=== PATIENT | female | born 1975 | race Caucasian/White ===

== ENCOUNTER 2021-05-08 22:07 | Emergency (ER) | payer SELFPAY ==
[2021-05-08] MEDS ORDERED: ONDANSETRON 4 MG/2 ML (SDV) Z0FRAN ONE (22:23)
[2021-05-08] MEDS ORDERED: ONDANSETRON 4 MG/2 ML (SDV) Z0FRAN IVP ONE (22:30)
[2021-05-08] MEDS ORDERED: LACTATED RINGERS 1,000 ML IV ONE (22:45)
[2021-05-08 22:46] LABS: BASOPHILS # (AUTO) 0.1 10^3/uL (0.0-0.1); BASOPHILS % (AUTO) 0 % (0-10); EOSINOPHILS # (AUTO) 0.1 10^3/uL (0.0-0.3); EOSINOPHILS % (AUTO) 1 % (0-10); HEMATOCRIT 43 % (35-52); HEMOGLOBIN 14.3 g/dL (11.5-16.0); LYMPHOCYTES # (AUTO) 2.2 10^3/uL (1.0-4.0); LYMPHOCYTES % (AUTO) 11 % (12-44); MEAN CORPUSCULAR HEMOGLOBIN 30 pg (25-34); MEAN CORPUSCULAR HGB CONC 33 g/dL (32-36); MEAN CORPUSCULAR VOLUME 92 fL (80-99); MEAN PLATELET VOLUME 10.5 fL (9.0-12.2); MONOCYTES # (AUTO) 0.9 10^3/uL (0.0-1.0); MONOCYTES % (AUTO) 5 % (0-12); NEUTROPHILS # (AUTO) 16.2 10^3/uL (1.8-7.8); NEUTROPHILS % (AUTO) 83 % (42-75); PLATELET COUNT 474 10^3/uL (130-400); WHITE BLOOD COUNT 19.6 10^3/uL (4.3-11.0)
[2021-05-08 22:51] LABS: ALBUMIN 4.7 GM/DL (3.2-4.5); CHLORIDE 106 MMOL/L (98-107); POTASSIUM 4.1 MMOL/L (3.6-5.0); SODIUM 141 MMOL/L (135-145)
[2021-05-08 22:52] LABS: AMYLASE 65 U/L (25-125)
[2021-05-08 22:53] LABS: CALCIUM 10.1 MG/DL (8.5-10.1)
[2021-05-08 22:54] LABS: GLUCOSE 164 MG/DL (70-105)
[2021-05-08 22:55] LABS: CARBON DIOXIDE 19 MMOL/L (21-32)
[2021-05-08 22:56] LABS: BILIRUBIN,TOTAL 0.3 MG/DL (0.1-1.0)
[2021-05-08 22:57] LABS: ALKALINE PHOSPHATASE 77 U/L (40-136); CREATININE SERUM 0.97 MG/DL (0.60-1.30); GFR ESTIMATED > 60
[2021-05-08 22:58] LABS: BUN/CREATININE RATIO 13
[2021-05-08 23:00] LABS: ALANINE AMINOTRANSFERASE 15 U/L (0-55)
[2021-05-08] MEDS ORDERED: HYOSCYAMINE 0.125 MG (LEVSIN) TAB PO ONE (23:00)
[2021-05-08] MEDS ORDERED: KETOROLAC 30 MG/ML VIAL IVP ONE (23:00)
[2021-05-08 23:01] LABS: LIPASE 19 U/L (8-78)
[2021-05-08 23:03] LABS: BAND NEUTROPHILS 1 %; LYMPHOCYTES % (MANUAL) 9 %; MONOCYTES % (MANUAL) 3 %; NEUTROPHILS % (MANUAL) 87 %; RBC MORPH NORMAL
--- NOTE | 2021-05-08 23:29 | ED Abdominal Pain ---
General Chief Complaint: Abdominal/GI Problems Stated Complaint: ABD PAIN / VOMITING Nursing Triage Note: TO ED VIA POV AND AMBULATORY TO ROOM 7 WITH C/O MIDLINE ABD PAIN THAT STARTED APPROX 1900 TODAY WHILE AT WORK. STATES SHE HAD EATEN AT 1700 BUT HAS VOMITED SINCE THEN. Source of Information: Patient History of Present Illness Date Seen by Provider: May 08, 2021 Time Seen by Provider: 22:35 Initial Comments PT ARRIVES VIA POV C/O DIFFUSE UPPER ABDOMINAL PAIN AND NAUSEA/VOMITING SINCE 1900 TONIGHT PAIN IS CONSTANT, NOTHING WORSENS OR IMPROVES PAIN NO RADIATION OF PAIN STATES SHE HAS VOMITED 10-15 TIMES NO DIARRHEA. HAD A NORMAL BM EARLIER TODAY NO URINARY SYMPTOMS AND VOIDING A NORMAL AMOUNT NO FEVER HAS NOT TAKEN ANYTHING FOR PAIN NO HISTORY OF SIMILAR PT WAS AT WORK TONIGHT WHEN SYMPTOMS BEGAN--PT IS A MED AID AT [facility]AL [facility], AND WAS PASSING MEDICATIONS WHEN SYMPTOMS BEGAN LAST FOOD INTAKE WAS AT 1700--TUNA SALAD SANDWICHES AND JELLO EARLIER TODAY, SHE HAD SCRAMBLED EGGS AND TOAST FOR BREAKFAST, THEN CHICKEN ARA FOR LUNCH MUCH LATER, PT REPORTS THAT SHE HAS HAD SOME MILDER, INTERMITTENT UPPER ABDOMINAL DISCOMFORT THROUGHOUT THE DAY TODAY, BUT NOTHING BAD TONIGHT AND DID NOT LAST LONG [facility] All[facility] and Home Medications Allergies Coded Allergies: Kiesha Known Allergies (Verified Allergy, Unknown, 03/05/07) Home Medications Dicyclomine HCl 20 Mg Tablet, 20 MG PO Q6H Prescribed by: STACY MALIK on 05/09/2153 Hyoscyamine Sulfate 0.125 Mg Tab.subl, 0.25 MG SL Q4H Prescribed by: STACY MALIK on 05/09/2153 Ondansetron 8 Mg Tab.rapdis, 8 MG PO Q6H Prescribed by: STACY MALIK on 05/09/2153 Pantoprazole Sodium 40 Mg Tablet.dr, 40 MG PO DAILY Prescribed by: STACY MALIK on 05/09/2153 Tramadol HCl 50 Mg Tablet, 50 MG PO Q4H Prescribed by: STACY MALIK on 05/09/2153 Patient Home Medication List Home Medication List Reviewed: Yes Review of Systems Review of Systems Constitutional: no symptoms reported Respiratory: No Symptoms Reported Cardiovascular: No Symptoms Reported Gastrointestinal: See HPI, Abdominal Pain, Nausea, Vomiting Genitourinary: No Symptoms Reported, Other (LMP 1 1/2 WEEKS AGO. NORMAL. 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 oz. kg; BMI Method: General Appearance: WD/WN, other (LOOKS UNCOMFORTABLE, RETCHING ON ARRIVAL, HOLDING UPPER ABDOMEN, UNABLE TO LAY STILL) Neck: normal inspection Respiratory: normal breath sounds, no respiratory distress, no accessory muscle use Cardiovascular: regular rate, rhythm, no murmur Gastrointestinal: soft, tenderness (DIFFUSE UPPER ABDOMINAL TENDERNESS) Extremities: normal inspection Back: no CVA tenderness Neurologic/Psychiatric: inclusion paraeducator II-XII nml as tested, no motor/sensory deficits, alert, oriented x 3 Skin: normal color, warm/dry; No rash Progress/Results/Core Measures Results/Orders Lab Results Laboratory Tests Test 05/08/21 22:20 05/08/21 23:43 Range/Units White Blood Count 19.6 H 4.3-11.0 10^3/uL Red Blood Count 4.70 3.80-5.11 10^6/uL Hemoglobin 14.3 11.5-16.0 g/dL Hematocrit 43 35-52 % Mean Corpuscular Volume 92 80-99 fL Mean Corpuscular Hemoglobin 30 25-34 pg Mean Corpuscular Hemoglobin Concent 33 32-36 g/dL Red Cell Distribution Width 13.0 10.0-14.5 % Platelet Count 474 H 130-400 10^3/uL Mean Platelet Volume 10.5 9.0-12.2 fL Immature Granulocyte % (Auto) 1 % Neutrophils (%) (Auto) 83 H 42-75 % Lymphocytes (%) (Auto) 11 L 12-44 % Monocytes (%) (Auto) 5 0-12 % Eosinophils (%) (Auto) 1 0-10 % Basophils (%) (Auto) 0 0-10 % Neutrophils # (Auto) 16.2 H 1.8-7.8 10^3/uL Lymphocytes # (Auto) 2.2 1.0-4.0 10^3/uL Monocytes # (Auto) 0.9 0.0-1.0 10^3/uL Eosinophils # (Auto) 0.1 0.0-0.3 10^3/uL Basophils # (Auto) 0.1 0.0-0.1 10^3/uL Immature Granulocyte # (Auto) 0.1 0.0-0.1 10^3/uL Neutrophils % (Manual) 87 % Lymphocytes % (Manual) 9 % Monocytes % (Manual) 3 % Band Neutrophils 1 % Blood Morphology Comment NORMAL Sodium Level 141 135-145 MMOL/L Potassium Level 4.1 3.6-5.0 MMOL/L Chloride Level 106 98-107 MMOL/L Carbon Dioxide Level 19 L 21-32 MMOL/L Anion Gap 16 H 5-14 MMOL/L Blood Urea Nitrogen 13 7-18 MG/DL Creatinine 0.97 0.60-1.30 MG/DL Estimat Glomerular Filtration Rate > 60 BUN/Creatinine Ratio 13 Glucose Level 164 H 70-105 MG/DL Calcium Level 10.1 8.5-10.1 MG/DL Corrected Calcium 8.5-10.1 MG/DL Total Bilirubin 0.3 0.1-1.0 MG/DL Aspartate Amino Transf (AST/SGOT) 19 5-34 U/L Alanine Aminotransferase (ALT/SGPT) 15 0-55 U/L Alkaline Phosphatase 77 40-136 U/L Total Protein 8.0 6.4-8.2 GM/DL Albumin 4.7 H 3.2-4.5 GM/DL Amylase Level 65 25-125 U/L Lipase 19 8-78 U/L Serum Test, Qualitative NEGATIVE NEGATIVE Urine Color YELLOW Urine Clarity CLEAR Urine pH 5.5 5-9 Urine Specific [place] 1.015 L 1.016-1.022 Urine Protein NEGATIVE NEGATIVE Urine Glucose (UA) NEGATIVE NEGATIVE Urine Ketones 2+ H NEGATIVE Urine Nitrite NEGATIVE NEGATIVE Urine Bilirubin NEGATIVE NEGATIVE Urine Urobilinogen 0.2 < = 1.0 MG/DL Urine Leukocyte Esterase NEGATIVE NEGATIVE Urine RBC (Auto) NEGATIVE NEGATIVE Urine RBC NONE /HPF Urine WBC NONE /HPF Urine Squamous Epithelial Cells 25-50 H /HPF Urine Crystals NONE /LPF Urine Bacteria NEGATIVE /HPF Urine Casts NONE /LPF Urine Mucus LARGE H /LPF Urine Culture Indicated NO Urine Opiates Screen POSITIVE H NEGATIVE Urine Oxycodone Screen NEGATIVE NEGATIVE Urine Methadone Screen NEGATIVE NEGATIVE Urine Propoxyphene Screen NEGATIVE NEGATIVE Urine Barbiturates Screen NEGATIVE NEGATIVE Ur Tricyclic Antidepressants Screen NEGATIVE NEGATIVE Urine Phencyclidine Screen NEGATIVE NEGATIVE Urine Amphetamines Screen NEGATIVE NEGATIVE Urine Methamphetamines Screen NEGATIVE NEGATIVE Urine Benzodiazepines Screen NEGATIVE NEGATIVE Urine Cocaine Screen NEGATIVE NEGATIVE Urine Cannabinoids Screen NEGATIVE NEGATIVE My Orders Orders - STACY MALIK DO Ondansetron Injection (Zofran Injectio (05/08/21 22:23) Drug Screen Stat (Urine) (05/08/21 22:33) Ua Culture If Indicated (05/08/21 22:33) Ed Iv/Invasive Line Start (05/08/21 22:40) Amylase (05/08/21 22:40) Cbc With Automated Diff (05/08/21 22:40) Comprehensive Metabolic Panel (05/08/21 22:40) Lipase (05/08/21 22:40) Ed Iv/Invasive Line Start (05/08/21 22:40) Lactated Ringers (Lr 1000 Ml Iv Solution (05/08/21 22:45) Hcg,Qualitative Serum (05/08/21 22:41) Manual Differential (05/08/21 22:20) Ketorolac Injection (Toradol Injection) (05/08/21 23:00) Hyoscyamine Sl Tablet (Levsin Sl Tablet) (05/08/21 23:00) Acute Abd Series (05/08/21 23:06) Ct Abdomen/Pelvis W (05/08/21 23:06) Iohexol Injection (Omnipaque 350 Mg/Ml 1 (05/08/21 23:45) Received Contrast (Hold Metformin- Contr (05/08/21 23:45) Ns (Ivpb) (Sodium Chloride 0.9% Ivpb Bag (05/08/21 23:45) Rx-Dicyclomine Capsule (Rx-Bentyl Capsul (05/09/21 00:54) Rx-Hyoscyamine Tab (Rx-Levsin Sl) (05/09/21 00:54) Rx-Tramadol Hcl (Rx-Ultram) (05/09/21 00:54) Rx-Ondansetron Po (Rx-Zofran Po) (05/09/21 00:54) Dicyclomine Capsule (Bentyl Capsule) (05/09/21 01:15) Medications Given in ED Current Medications Medications Dose Ordered Sig/Yuan Route Start Time Stop Time Status Last Admin Dose Admin Hyoscyamine Sulfate 0.25 mg ONCE ONCE PO 05/08/21 23:00 05/08/21 23:01 DC 05/08/21 23:00 0.25 MG Iohexol 100 ml ONCE ONCE IV 05/08/21 23:45 05/09/21 00:01 DC 05/08/21 23:42 100 ML Ketorolac Tromethamine 30 mg ONCE ONCE IVP 05/08/21 23:00 05/08/21 23:01 DC 05/08/21 23:00 30 MG Lactated Ringer's 1,000 ml @ 0 mls/hr Q0M ONCE IV 05/08/21 22:45 05/08/21 22:46 DC 05/08/21 22:47 999 MLS/HR Ondansetron HCl 8 mg ONCE ONCE IVP 05/08/21 22:30 05/08/21 22:31 DC 05/08/21 22:26 8 MG Sodium Chloride 80 ml ONCE ONCE IV 05/08/21 23:45 05/09/21 00:01 DC 05/08/21 23:42 80 ML Vital Signs/I&O 05/08/21 05/09/21 22:15 01:22 Temp 37.0 Pulse 80 72 Resp 20 16 B/P (MAP) 134/96 (109) 128/89 (109) Pulse Ox 99 O2 Delivery Room Air Room Air Blood Pressure Mean: 109 Progress Progress Note : Progress Note GIVEN IV FLUIDS, ZOFRAN, LEVSIN AND TORADOL WITH SIGNIFICANT IMPROVEMENT IN SYMPTOMS ABDOMEN IS NON TENDER AT DISMISSAL Diagnostic Imaging Comments ABDOMEN XRAYS--CALCIFICATION IN RUQ, OTHERWISE NO ACUTE PROCESS, PENDING RADIOLOGIST REVIEW CT ABDOMEN/ PELVIS--2.8 CM STONE IN NECK OF GALLBLADDER. NO PERICHOLECYSTIC INFLAMMATORY CHANGES, NO BILIARY DILATATION. HEPATIC STEATOSIS. PER [facility] VIA FAX AT [id number] Reviewed: Reviewed by Me Departure Impression Primary Impression: Cholelithiasis Disposition: HOME, SELF-CARE Condition: Improved Departure-Patient Inst. Decision time for Depature: 00:49 Referrals: [facility] [place] Primary Care Physician IVÁN PACHECO DO Patient Instructions: Gallstones (DC) Add. Discharge Instructions: CLEAR LIQUIDS--WATER, BROTH, JELLO, GATORADE BRATS DIET--BANANAS, RICE, APPLESAUCE, TOAST, SALTINES FOLLOW UP WITH DR. PACHECO, SURGEON, THIS WEEK FOR FURTHER CARE All discharge instructions reviewed with patient and/or family. Voiced understanding. Scripts Tramadol HCl (Ultram) 50 Mg Tablet 50 MG PO Q4H for Pain, #20 TAB Prov: STACY MALIK DO 05/09/21 Pantoprazole Sodium (Protonix) 40 Mg Tablet.dr 40 MG PO DAILY, #15 TAB Prov: STACY MALIK DO 05/09/21 Dicyclomine HCl (Dicyclomine HCl) 20 Mg Tablet 20 MG PO Q6H for Abdominal Pain, #20 TAB Prov: STACY MALIK DO 05/09/21 Ondansetron (Ondansetron Odt) 8 Mg Tab.rapdis 8 MG PO Q6H, #10 TAB Prov: STACY MALIK DO 05/09/21 Hyoscyamine Sulfate (Levsin-Sl) 0.125 Mg Tab.subl 0.25 MG SL Q4H, #10 TAB Prov: STACY MALIK DO 05/09/21 STACY MALIK DO May 08, 2021 23:29
[2021-05-08] MEDS ORDERED: IOHEXOL 350 MG/ML 100 ML (OMNIPAQUE 350) VIAL IV ONE (23:45)
[2021-05-08] MEDS ORDERED: NS 100 ML (IVPB) BAG IV ONE (23:45)
[2021-05-08] MEDS ORDERED: HOLD METFORMIN - RECEIVED CONTRAST 20 ML VIAL IV SCH (23:45)
[2021-05-08 23:52] LABS: BILIRUBIN,URINE NEGATIVE (NEGATIVE); CLARITY,URINE CLEAR; COLOR,URINE YELLOW; GLUCOSE, URINE (UA) NEGATIVE (NEGATIVE); KETONES,URINE 2+ (NEGATIVE); LEUKOCYTE ESTERASE ,URINE NEGATIVE (NEGATIVE); NITRITE,URINE NEGATIVE (NEGATIVE); PH,URINE 5.5 (5-9); PROTEIN,URINE NEGATIVE (NEGATIVE)
[2021-05-09 00:01] LABS: AMPHETAMINE SCREEN, URINE NEGATIVE (NEGATIVE); BACTERIA,URINE NEGATIVE /HPF; BARBITURATE SCREEN URINE NEGATIVE (NEGATIVE); BENZODIAZEPINES SCREEN URINE NEGATIVE (NEGATIVE); CANNABINOID SCREEN, URINE NEGATIVE (NEGATIVE); COCAINE SCREEN URINE NEGATIVE (NEGATIVE); METHADONE STAT NEGATIVE (NEGATIVE); METHAMPHETAMINE SCREEN URINE S NEGATIVE (NEGATIVE); OPIATE SCREEN URINE POSITIVE (NEGATIVE); OXYCODONE STAT NEGATIVE (NEGATIVE); PROPOXYPHENE STAT NEGATIVE (NEGATIVE); SQUAMOUS EPITHELIAL CELL,UR 25-50 /HPF; TRICYCLIC ANTIDEPRESSANTS SCRE NEGATIVE (NEGATIVE)
[2021-05-09] MEDS ORDERED: DICY20TA10 PO (00:54)
[2021-05-09] MEDS ORDERED: RX-DICYCLOMINE 10 MG (BENTYL) CAP PPK#4 PO STA (00:54)
[2021-05-09] MEDS ORDERED: PANT40TA2 PO (00:54)
[2021-05-09] MEDS ORDERED: ONDA8TAB13 PO (00:54)
[2021-05-09] MEDS ORDERED: HYOS0.1283 SL (00:54)
[2021-05-09] MEDS ORDERED: RX-HYOSCYAMINE 0.125 MG SL (LEVSIN) PPK#6 SL STA (00:54)
[2021-05-09] MEDS ORDERED: RX-ONDANSETRON 4 MG ODT (ZOFRAN) PPK #4 PO STA (00:54)
[2021-05-09] MEDS ORDERED: TRAM-42 PO (00:54)
[2021-05-09] MEDS ORDERED: DICYCLOMINE 10 MG (BENTYL) CAP PO SCH (01:15)
[2021-05-09 01:22] VITALS: BP 128/89
--- NOTE | 2021-05-09 06:56 | Diagnostic Imaging Report ---
EXAMINATION: CT abdomen and pelvis with intravenous contrast. TECHNIQUE: Multiple contiguous axial images were obtained through the abdomen and pelvis after the uneventful administration of intravenous contrast. All CT scans use one or more of the following dose optimizing techniques: automated exposure control, MA and/or KvP adjustment based on patient size and exam type or iterative reconstruction. HISTORY: UPPER ABD PAIN COMPARISON: None available. FINDINGS: Lung bases: The lung bases are clear. Solid organs: The liver is normal without focal lesion. There is a 2.7 cm stone within the gallbladder near the gallbladder neck. There is no biliary ductal dilation. Pancreas is normal. Spleen is normal. Adrenal glands are normal. The kidneys are normal without hydronephrosis. Bowel: The stomach and small bowel are normal without obstruction. The colon and appendix are normal. Peritoneum: There is no intraperitoneal free fluid or free air. No suspicious lymphadenopathy. Vasculature: Normal without aneurysm. Musculoskeletal: No suspicious osseous lesion or compression fracture. Pelvis: Heterogeneous and lobular appearance of the uterus likely secondary to uterine fibroids. No adnexal mass. Bladder is decompressed but otherwise unremarkable. IMPRESSION: 1. No acute abnormality in the abdomen or pelvis. 2. Cholelithiasis with a 2.7 cm stone in the gallbladder neck. 3. Agree with preliminary interpretation. Dictated by: Dictated on workstation # [id number]
--- NOTE | 2021-05-09 08:17 | Diagnostic Imaging Report ---
INDICATION: Generalized abdominal pain COMPARISON: None. FINDINGS: Acute abdominal series demonstrates clear lungs bilaterally. The heart is normal. There is no free air under the diaphragm. No bowel distention or significant constipation is identified. There is a nonspecific rounded radiopacity in the right upper quadrant that persists on the both views of the abdomen. IMPRESSION: 1. No acute abnormalities identified within the chest. 2. Nonspecific radiopacity in the right upper quadrant near the midline. This could represent a gallstone. CT correlation recommended. No bowel obstruction or free air. Dictated by: Dictated on workstation # [id number]
== END 2021-05-09 01:28 | disposition home or self-care (01) ==
LOC: EDUNIT# 22:07 → ER 22:09
DX: K80.20 Calculus of gallbladder without cholecystitis without obstruction (principal); E11.9 Type 2 diabetes mellitus without complications; F17.210 Nicotine dependence, cigarettes, uncomplicated
CPT/HCPCS: 36415; 74022; 74177; 80053; 80306; 81000; 82150; 83690; 84703; 85007; 85027